=== PATIENT | male | born 1985 | race Caucasian/White ===

== ENCOUNTER 2016-12-07 12:43 | Emergency (ER) | payer SELFPAY ==
[2016-12-07 13:06] VITALS: BP 137/89
--- NOTE | 2016-12-07 13:26 | UC ---
Lower Extremity/Ankle HPI - HPI Summary HPI Summary: Patient sustained an injury on 10.24.16, he was kneeling on his right knee at work, felt a sharp pain and the area around the patella swelled. she was seen by Lauren TRAN at his PCP office. Xray at the time was negative for bony injury, knee feels stable. He presents today complaining of the sharp pain when kneeling on the same knee. no swelling at this time, ROM is full. - History of Current Complaint Chief Complaint: UCLowerExtremity Stated Complaint: RIGHT KNEE WC NEEDS NOTE Time Seen by Provider: 12/07/16 13:10 Hx Obtained From: Patient Onset/Duration: Sudden Onset, Still Present Severity Initially: Mild Severity Currently: Moderate Aggravating Factor(s): Other - kneeling Alleviating Factor(s): Nothing Able to Bear Weight: Yes Related History: Occupational Injury - Allergies/Home Medications Allergies/Adverse Reactions: Allergies Allergy/AdvReac Type Severity Reaction Status Date / Time No Known Allergies Allergy Verified 12/07/16 13:07 Home Medications: Home Medications Methylphenidate HCl [Concerta] 54 mg PO DAILY 12/07/16 [History Confirmed ] PMH/Surg Hx/FS Hx/Imm Hx Previously Healthy: Yes Respiratory History Of: Reports: Asthma - Surgical History Surgical History: Yes Surgery Procedure, Year, and Place: deviated septum - Family History Known Family History: Negative: Cardiac Disease, Hypertension - Social History Alcohol Use: Occasionally Substance Use Type: None Smoking Status (MU): Never Smoked Tobacco Review of Systems Constitutional: Negative Skin: Negative Eyes: Negative ENT: Negative Respiratory: Negative Cardiovascular: Negative Gastrointestinal: Negative Genitourinary: Negative Motor: Negative Musculoskeletal: Arthralgia Neurological: Negative Psychological: Negative All Other Systems Reviewed And Are Negative: Yes Physical Exam Triage Information Reviewed: Yes Appearance: Well-Appearing, Well-Nourished, Pain Distress Vital Signs: Initial Vital Signs Temp 98.1 F 12/07/16 13:00 Pulse 72 12/07/16 13:00 Resp 14 12/07/16 13:00 BP 137/89 12/07/16 13:00 Pulse Ox 100 12/07/16 13:00 Vital Signs Reviewed: Yes Eye Exam: Normal Eyes: Positive: Conjunctiva Clear ENT Exam: Normal ENT: Positive: Hearing grossly normal, Pharynx normal, TMs normal Dental Exam: Normal Neck exam: Normal Neck: Positive: Supple, Nontender, No Lymphadenopathy Respiratory Exam: Normal Respiratory: Positive: Chest non-tender, Lungs clear, Normal breath sounds Cardiovascular Exam: Normal Cardiovascular: Positive: RRR, No Murmur, Pulses Normal Abdominal Exam: Normal Abdomen Description: Positive: Nontender, No Organomegaly, Soft Bowel Sounds: Positive: Present Musculoskeletal Exam: Normal Musculoskeletal: Positive: Strength Intact, ROM Intact, No Edema, Other: - palpable tenderness and "mushy" feel to the lower pole of the patella, otherwise negative exam of the knee joint and leg Neurological Exam: Normal Neurological: Positive: Alert, Muscle Tone Normal Psychological Exam: Normal Skin Exam: Normal Lower Extremity Course/Dx - Course Course Of Treatment: hx obtained, exam performed, meds reviewed, treated for pre patellar bursitis with meloxicam and referred to ortho for follow up if pain persists. - Differential Dx/Diagnosis Differential Diagnosis/HQI/PQRI: Bursitis, Contusion, Dislocation, Fracture ( Closed), Sprain, Strain Provider Diagnoses: pre patellar bursitis Discharge - Discharge Plan Condition: Stable Disposition: HOME Prescriptions: Meloxicam [Mobic] 15 mg PO DAILY #14 tab Patient Education Materials: Knee Bursitis (ED) Forms: *Work Release Referrals: Benton Carrera MD [Primary Care Provider] - Ramón Koch MD [Medical Doctor] - Additional Instructions: 1. take the meloxicam as prescribed. 2. You may return to work with knee protection. 3. follow up with Dr. Koch next week.
== END 2016-12-07 13:39 | disposition home or self-care (01) ==
LOC: UCCORT 12:43
DX: M70.41 Prepatellar bursitis, right knee (principal); Y93.89 Activity, other specified; J45.909 Unspecified asthma, uncomplicated
CPT/HCPCS: 99202; G0463

== ENCOUNTER 2017-05-23 18:02 | Emergency (ER) | payer BC, OTHER ==
[2017-05-23 19:28] VITALS: BP 144/85
--- NOTE | 2017-05-23 19:53 | UC ---
FLU HPI - HPI Summary HPI Summary: Pt c/o cough, chills, night sweats, back pain and generalized malaise X 10 days. - History of Current Complaint Chief Complaint: UCGeneralIllness Stated Complaint: WHEEZING COUGH,CHILLS/SWEATS Time Seen by Provider: 05/23/17 19:46 Hx Obtained From: Patient Onset/Duration: Gradual Onset, Lasting Days - 10, Still Present Severity Currently: Mild Severity Initially: Mild Associated Signs & Symptoms: Positive: Myalgia, Cough Related Hx: Possible Flu/Infectious Exposure - Risk Factors Influenza Risk Factors: Negative - Allergy/Home Medications Allergies/Adverse Reactions: Allergies Allergy/AdvReac Type Severity Reaction Status Date / Time No Known Allergies Allergy Verified 05/23/17 19:28 PMH/Surg Hx/FS Hx/Imm Hx Previously Healthy: Yes - Surgical History Surgical History: Yes Surgery Procedure, Year, and Place: deviated septum - Family History Known Family History: Negative: Cardiac Disease, Hypertension - Social History Occupation: Employed Full-time Lives: With Family Alcohol Use: Occasionally Substance Use Type: None Smoking Status (MU): Never Smoked Tobacco Have You Smoked in the Last Year: No - Immunization History Most Recent Influenza Vaccination: none Review of Systems Constitutional: Chills, Fatigue Skin: Negative Eyes: Negative ENT: Sore Throat Respiratory: Cough Cardiovascular: Negative Gastrointestinal: Negative Genitourinary: Negative Motor: Negative Neurovascular: Negative Musculoskeletal: Myalgia Neurological: Headache Psychological: Negative Is Patient Immunocompromised?: No All Other Systems Reviewed And Are Negative: Yes Physical Exam Triage Information Reviewed: Yes Appearance: Well-Appearing Vital Signs: Initial Vital Signs Temp 98.4 F 05/23/17 19:24 Pulse 88 05/23/17 19:24 Resp 17 05/23/17 19:24 BP 144/85 05/23/17 19:24 Pulse Ox 95 05/23/17 19:24 Vital Signs Reviewed: Yes Eye Exam: Normal ENT Exam: Other ENT: Positive: Other: - PND Dental Exam: Normal Neck exam: Normal Respiratory Exam: Normal Cardiovascular Exam: Normal Musculoskeletal Exam: Normal Neurological Exam: Normal Psychological Exam: Normal Skin Exam: Normal Flu Course/Dx - Differential Dx/Diagnosis Differential Diagnosis/HQI/PQRI: Bronchitis Provider Diagnoses: Bronchitis Discharge - Discharge Plan Condition: Stable Disposition: HOME Prescriptions: Azithromycin TAB* [Zithromax TAB (Z-SIRIA) 250 mg #6 tabs] 2 tab PO .TODAY, THEN 1 DAILY #1 siria Patient Education Materials: Acute Bronchitis (ED) Referrals: Benton Carrera MD [Primary Care Provider] - If Needed
== END 2017-05-23 20:36 | disposition home or self-care (01) ==
LOC: UCCORT 18:02
DX: J40 Bronchitis, not specified as acute or chronic (principal)
CPT/HCPCS: 87502; 99212; G0463